=== PATIENT | female | born 1935 | race Caucasian/White ===

== ENCOUNTER → 2017-11-16 | Emergency (ER) | payer OTHER ==
[~2017-11-16] VITALS: Ht 144.8 cm; Wt 74.8 kg
[~2017-11-16] MED LIST: ARICEPT10 MG; CARBIDOPA-LEVO1 EA10; FLUOXETINE HCL20 MG; NAMENDA10 MG; PLAVIX75 MG; PROTONIX40 MG; RESTORIL15 MG; SYNTHROID50 MCG; ZANTAC300 MG
== END | disposition home or self-care (01) ==
LOC: ER 13:53
DX: S90.112A Contusion of left great toe without damage to nail, initial encounter (principal); S90.111A Contusion of right great toe without damage to nail, initial encounter; S90.122A Contusion of left lesser toe(s) without damage to nail, initial encounter; S90.121A Contusion of right lesser toe(s) without damage to nail, initial encounter; I73.9 Peripheral vascular disease, unspecified; X58.XXXA Exposure to other specified factors, initial encounter; Y93.89 Activity, other specified; Y92.89 Other specified places as the place of occurrence of the external cause; Y99.8 Other external cause status

== ENCOUNTER 2018-02-05 21:04 | Inpatient (IN) | payer OTHER ==
[~2018-02-05] VITALS: Ht 157.5 cm; Wt 56.7 kg
== END 2018-04-15 17:58 | DRG 871 ==
LOC: ER 21:04 → ICU-2 02-06 09:29 → MEDJ 02-13 15:38 → SURH 02-20 12:35
PROC: 3E0F7GC Introduction of Other Therapeutic Substance into Respiratory Tract, Via Natural or Artificial Opening (ICD-10-PCS; 2018-02-06)
PROC: B246ZZZ Ultrasonography of Right and Left Heart (ICD-10-PCS; 2018-02-08)
PROC: 8E0ZXY6 Isolation (ICD-10-PCS; 2018-02-13)
PROC: 07DR3ZX Extraction of Iliac Bone Marrow, Percutaneous Approach, Diagnostic (ICD-10-PCS; principal; 2018-02-18)
PROC: BW24ZZZ Computerized Tomography (CT Scan) of Chest and Abdomen (ICD-10-PCS; 2018-02-26)
PROC: BW25Y0Z Computerized Tomography (CT Scan) of Chest, Abdomen and Pelvis using Other Contrast, Unenhanced and Enhanced (ICD-10-PCS; 2018-03-04)
PROC: 07DR3ZX Extraction of Iliac Bone Marrow, Percutaneous Approach, Diagnostic (ICD-10-PCS; 2018-03-05)
PROC: CW1NLZZ Planar Nuclear Medicine Imaging of Whole Body using Gallium 67 (Ga-67) (ICD-10-PCS; 2018-03-09)
PROC: 4A033R1 Measurement of Arterial Saturation, Peripheral, Percutaneous Approach (ICD-10-PCS; 2018-03-10)
DX: A41.81 Sepsis due to Enterococcus (principal); R65.21 Severe sepsis with septic shock; N39.0 Urinary tract infection, site not specified; B37.0 Candidal stomatitis; E46 Unspecified protein-calorie malnutrition; E27.49 Other adrenocortical insufficiency; J98.11 Atelectasis; J90 Pleural effusion, not elsewhere classified; B37.49 Other urogenital candidiasis; F02.81 Dementia in other diseases classified elsewhere, unspecified severity, with behavioral disturbance; Z74.01 Bed confinement status; B96.29 Other Escherichia coli [E. coli] as the cause of diseases classified elsewhere; B96.4 Proteus (mirabilis) (morganii) as the cause of diseases classified elsewhere; G30.8 Other Alzheimer's disease; I10 Essential (primary) hypertension; D63.8 Anemia in other chronic diseases classified elsewhere; E03.8 Other specified hypothyroidism; R09.02 Hypoxemia; E86.0 Dehydration; L89.152 Pressure ulcer of sacral region, stage 2; R13.19 Other dysphagia; B00.1 Herpesviral vesicular dermatitis; B96.5 Pseudomonas (aeruginosa) (mallei) (pseudomallei) as the cause of diseases classified elsewhere; Z16.24 Resistance to multiple antibiotics; D75.89 Other specified diseases of blood and blood-forming organs; B96.1 Klebsiella pneumoniae [K. pneumoniae] as the cause of diseases classified elsewhere; G31.83 Neurocognitive disorder with Lewy bodies; Z16.12 Extended spectrum beta lactamase (ESBL) resistance; K56.41 Fecal impaction; L89.311 Pressure ulcer of right buttock, stage 1